=== PATIENT | female | born 2000 | race African-American/Black ===

== ENCOUNTER 2020-10-17 14:51 | Emergency (ER) | payer OTHER, SELFPAY ==
[2020-10-17] MEDS ORDERED: Ibuprofen 200 MG TAB ONE (16:08)
[2020-10-17] MEDS ORDERED: Cyclobenzaprine 10 MG TAB ONE (16:08)
== END 2020-10-17 16:51 | disposition home or self-care (01) ==
LOC: ERS 14:51
DX: M54.5 Low back pain (principal); M54.6 Pain in thoracic spine; V89.2XXA Person injured in unspecified motor-vehicle accident, traffic, initial encounter
CPT/HCPCS: 99283